=== PATIENT | female | born 1965 | race Caucasian/White ===

== ENCOUNTER 2019-02-16 00:30 | Outpatient (CLI) | payer OTHER, SELFPAY ==
--- NOTE | 2019-02-16 12:12 | DI.MAMMO_ITS ---
SYMPTOM/DIAGNOSIS: SCREENING, Z12.31 MAMMOGRAMS: Mammograms were interpreted according to the usual protocol including computer analysis with CAD system, tomosynthesis and C view imaging. The breasts are heterogenously dense with fairly symmetrical distribution of fibroglandular tissue. No dominant mass or clumped microcalcification is identified in either breast. Current examination is compared with previous examinations including 10/2017 and there has been no gross interval change in appearance in comparison with the previous studies. CONCLUSION: No specific evidence of malignancy at this time. Routine screening examinations are suggested at yearly intervals in this age group according to the ACS/ACR guidelines. Category 1. Breast density, category C. MQSA ASSESSMENT OF FINDINGS: Negative. Category 1. Patient will receive a letter notifying them of these results. Bi-RADS category C. The breasts are heterogeneously dense, which may obscure small masses.
== END 2019-02-16 00:50 ==
PROVIDERS: PCP Nurse Practitioner; Visit Provider Nurse Practitioner Family
DX: Z12.31 Encounter for screening mammogram for malignant neoplasm of breast (principal)
CPT/HCPCS: 77063; 77067

== ENCOUNTER 2020-02-12 13:58 | Outpatient (REF) | payer OTHER, SELFPAY ==
[2020-02-12 21:46] LABS: Hemoglobin A1C 5.2 % (<5.7)
[2020-02-12 22:14] LABS: Calculated LDL 144 mg/dL (<100); Cholesterol 236 mg/dL (<200); HDL Cholesterol 65 mg/dL (40-60); Triglyceride 137 mg/dL (<150)
== END 2020-02-12 14:18 ==
LOC: LBN 13:58
PROVIDERS: PCP Nurse Practitioner; Visit Provider Nurse Practitioner
DX: Z13.6 Encounter for screening for cardiovascular disorders (principal); Z13.1 Encounter for screening for diabetes mellitus
CPT/HCPCS: 80061; 83036

== ENCOUNTER 2020-03-17 10:43 | Outpatient (CLI) | payer OTHER, SELFPAY ==
--- NOTE | 2020-03-17 15:19 | DI.MAMMO_ITS ---
EXAM: MAMMO SCREENING CLINICAL HISTORY: SCREENING, Z12.39 TECHNIQUE: Mammograms were interpreted according to the usual protocol including computer analysis w [employer] CAD system, tomosynthesis and C-view imaging. COMPARISON: FINDINGS: The breasts are heterogeneously dense. No dominant mass or clumped microcalcification is identified in either breast. The current examination is compared previous examinations including February 2019 and there has been no gross interval change in appearance in comparison with the prior studies. IMPRESSION: No specific evidence of malignancy at this time. Routine screening examinations are suggested at ye dee intervals in this age group according to the ACS ACR guidelines. BI-RADS Category 1 - Negative Breast Density - Category C - Heterogeneously dense
== END 2020-03-17 11:03 ==
PROVIDERS: PCP Nurse Practitioner; Visit Provider Nurse Practitioner
DX: Z12.31 Encounter for screening mammogram for malignant neoplasm of breast (principal)
CPT/HCPCS: 77063; 77067

== ENCOUNTER 2021-01-01 05:57 | Emergency (ER) | payer OTHER, SELFPAY ==
--- NOTE | 2021-01-01 05:57 | ED.GENADUL_ITS ---
Discharge Plan Disposition Patient Disposition: HOME Condition: Good Discharge Details Clinical Impression: Febrile illness Primary Care Provider: Bonnie Melchor ED Provider: Rancho Chaudhari Meds and New Rx's Prescriptions: New doxycycline hyclate 100 mg capsule 100 mg PO BID Qty: 28 RF: 0 Continued sumatriptan succinate 50 mg tablet 50 mg PO ONCE Qty: 10 RF: 5 Multiple Vitamin, Womens 1 EACH tablet 1 ea PO daily prn RF: 0 metronidazole 45 GM gel 45 gm Topical PRN RF: 0 ibuprofen 200 MG tablet 400 - 800 mg PO daily prn RF: 0 calcium carb and citrate-vitD3 [Citracal-D3 Slow Release] 1 EACH tablet extended release 2 ea PO DAILY RF: 0 fluticasone propionate 50 mcg/actuation spray,suspension 2 spray PREMA DAILY Qty: 54.6 RF: 3 Discharge Instructions Instructions: Doxycycline (By mouth), Fever in Adults (ED) Additional Instructions: Work-up here this morning for the most part unrevealing. Covid is negative. Chest x-ray negative. Urine negative. Clinically do not suspect meningitis. Possible rickettsial disease given constellation of symptoms and slight bump in liver function. Tick panel is pending but as we discussed we will start doxycycline now and can discontinue if negative. If positive completed 2-week course. Follow-up with primary care next week if not feeling better. Return to ED if worsening severe headache, mental status change, difficulty breathing, chest pain, abdominal pain, vomiting, other concerns. Referrals: Bonnie Melchor, RESEARCH NEUROPSYCHOLOGIST [Primary Care Provider] - Medical Decision Making Patient presenting with myalgias, back pain, headache with associated fever but no other specific symptomatology. No rash or joint pain/swelling. No known tick bite but is outside and walks on path to the walker frequently. She is vaccinated against Covid and has had no recent travel. Her exam is unremarkable except for her fever. She does not look ill. She has no tachycardia or hypotension. IV established. Ketorolac and fluids were ordered. Laboratory studies including Covid swab and tick panel sent. Chest x-ray ordered. Given that headaches are mild and no different from previous with supple neck and no meningeal signs do not suspect meningitis. Laboratory studies for the most part are unremarkable. Patient's white count is normal. Platelet count is normal. Lactic acid is normal. Chemistries are fine. She does have a slight bump in her AST and ALT. Urine is negative. Chest x-ray clear per my read. Rapid Covid negative. Given her cluster of symptoms with slightly elevated liver function tests consider rickettsial disease. Discussed with patient at length regarding starting doxycycline while waiting for the tick panel to return and discontinuing it if negative versus waiting for tick panel results before starting any treatment. Patient would prefer to start doxycycline at this time. Discussed follow-up. Discussed reasons to return including worsening headache, mental status change, shortness of breath, vomiting, other concerns. Lab Data Lab results reviewed: Yes I reviewed the patient's lab results. HPI General Mode of arrival: ambulatory . Date/Time Provider Initiated Documentation: 01/01/21 05:57 . Limitations to Documentation: no limitations . Information obtained by: patient and RN notes reviewed . HPI Narrative: Patient presents to ED with fever. Patient began with upper lumbar back pain, body aches, headache midweek. Developed fever yesterday. Has had chills. Denies any URI symptoms. Denies cough, shortness of breath, chest pain, abdominal pain. She has no nausea vomiting or diarrhea. She has no urinary symptoms. She has noticed no rash, joint swelling, joint pain. 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 Reports that the back pain and headache waxes and wanes in intensity. She gets frequent headaches and these really are not any different than previous. She is otherwise usually quite healthy. Related Data Home Medications Medication Instructions Recorded Confirmed Multiple Vitamin, Womens 1 ea PO daily prn 12/30/12 01/01/21 metronidazole 45 gm TOPICAL PRN script 09/20/14 01/01/21 ibuprofen 400 - 800 mg PO daily prn tab-cap 06/07/15 01/01/21 calcium carb and citrate-vitD3 2 ea PO DAILY 08/20/17 01/01/21 [Citracal-D3 Slow Release] fluticasone propionate 50 2 spray PREMA DAILY #54.6 ml 04/21/19 01/01/21 mcg/actuation nasal spray,suspension sumatriptan succinate 50 mg tablet 50 mg PO ONCE #10 tab 02/12/20 01/01/21 doxycycline hyclate 100 mg PO BID #28 cap 01/01/21 Previous Rx's Medication Instructions Recorded fluticasone propionate 50 2 spray PREMA DAILY #54.6 ml 04/21/19 mcg/actuation nasal spray,suspension sumatriptan succinate 50 mg tablet 50 mg PO ONCE #10 tab 02/12/20 doxycycline hyclate 100 mg PO BID #28 cap 01/01/21 Allergies Allergy/AdvReac Type Severity Reaction Status Date / Time Opioids - Morphine Analogues AdvReac Unknown NAUSEA/VOMI Verified 01/01/21 06:09 TING Review of Systems Narrative: 03/23 Review of Systems completed and is negative except as stated above in HPI (Systems reviewed: Const, Eyes, ENT, Resp, CV, GI, , MSK, Skin, Neuro) [facility] Medical History (Updated 01/01/21 @ 07:49 by Rancho Chaudhari MD) Seasonal depression Surgical History Tonsillectomy Family History Mother Migraine Osteoporosis Father , age 75 Prostate cancer Sister Hyperlipidemia Sister No problems noted. Brother No problems noted. Maternal Grandfather , age 78 Essential hypertension Stroke Maternal Grandmother , age 93 No problems noted. Paternal Grandmother , 80 No problems noted. Son Down syndrome Son No problems noted. Daughter No problems noted. Daughter No problems noted. Social History Smoking/Tobacco Use Status: Never Smoking risk assessment performed?: Yes Alcohol Intake: current Alcohol Intake frequency: holidays/special occasions only Alcohol type: beer, wine and hard liquor Drug use: Never Substance use type: does not use Counseling given: No Caregiver/Support person: No Household members: spouse and children Housing: house Communication Needs: Corrective Lenses Do you need help understanding health information?: Never current occupation: Pharmacist at [employer] Pets and animals: Yes Pets and animals: cat(s) and dog(s) Sexually active: Yes Do you think of yourself as: straight/heterosexual Current gender identity: female What is your relationship status?: How often do you talk on the phone with friends or family?: twice per week How often do you get together with friends or relatives?: once per week How often do you attend restorationist or mosque services?: 4 or more times per year Do you belong to any clubs or organized social groups?: no Panel score (0-1 are the most socially isolated patients): 3 What type of physical activity do you participate in: walking Duration: 15-30 minutes/day Frequency: 5-6 times per week Carley/Jainism: Pentecostal Special carley needs: No Seatbelt use: always Helmet use: Yes Helmet use: always Drive intox or ride w/intox tanker truck driver: No Do you feel safe at home: Yes Do you feel safe in your relationship?: Yes Exam Narrative Exam Narrative: Const: WDWN female in NAD. HEENT: NC/AT. Normal facial exam. Eyes: Normal conjunctiva and sclera. Neck: Supple. Trachea midline. No meningeal signs. Lungs: Normal respiratory effort. Lungs are clear. Cor: RRR without murmur/gallop. Good radial pulses. GI: Soft. NT/ND. No guarding or rebound. Back: No CVAT Neuro: A+O x 3. Normal speech, mentation, gait. Cranial nerves II - XII grossly intact. No gross motor or sensory deficit. Ext: No C/C/E. Skin: Warm and dry without rash.
[2021-01-01 06:02] VITALS: BP 117/66; PULSE 91; RESP 16; TEMP 38.4; O2SAT 93
--- NOTE | 2021-01-01 06:15 | DI.RAD_ITS ---
Exam(s) XR PORTABLE CHEST AP EXAM: XR PORTABLE CHEST AP CLINICAL HISTORY: fever TECHNIQUE: 2D digital imaging was performed. COMPARISON: No exams were available for comparison FINDINGS: MEDIASTINUM: Normal. HEART: Normal. PULMONARY VASCULATURE: Normal. LUNGS: Clear. PLEURAL SPACE: No pleural effusion or pneumothorax. BONE:Within normal limits for the patient's age. OTHER FINDINGS:Normal. IMPRESSION: No acute pulmonary findings. DATA REPOSITORY: RADIATION DOSE DELIVERED:
[2021-01-01 06:19] LABS: Bilirubin Negative (Negative); Blood Negative (Negative); Glucose Negative (Negative); Ketones Negative (Negative); Leukocyte Esterase Negative (Negative); Nitrite Negative (Negative); Specific Gravity 1.025 (1.005-1.025)
[2021-01-01 06:20] LABS: Clarity Sl Cloudy (Clear)
[2021-01-01 06:29] LABS: Bacteria Few HPF (Negative); Epithelial Cells Rare HPF (Negative); WBC 0-2 HPF (0-5)
[2021-01-01 06:30] LABS: C & S Indicated? No; Casts Negative LPF (Negative); Crystals Few Amorphous HPF (Negative); Mucus Moderate (Negative)
[2021-01-01 06:34] LABS: Lactate 0.9 mmol/L (0.6-1.4)
[2021-01-01 06:36] LABS: Abs Immature Grans 0.02 10^3/uL (0.0-0.06); Absolute Basophil Count 0.03 10^3/uL (0.0-0.2); Absolute Lymphocyte Count 0.78 10^3/uL (1.2-3.4); Absolute Monocyte Count 0.39 10^3/uL (0.1-0.8); Absolute Neutrophil Count 4.14 10^3/uL (1.2-6.7); Basophils % 0.6; HCT 38.3 % (36.0-46.0); HGB 13.1 g/dL (11.2-15.7); Immature Grans % 0.4; Lymphocytes % 14.6; MCH 31.6 pg (27.0-33.0); MCHC 34.2 % (32.0-36.0); MCV 92.3 fL (80-95); MPV 10.7 fL (8.0-11.0); Monocytes % 7.3; Neutrophils % 77.1; Nucleated RBC 0 %; Platelet Count 176 10^3/uL (130-400); RBC 4.15 10^6/uL (3.93-5.22); RDW 11.9 % (11.7-14.6); RDW-SD 40.2 fL; WBC 5.36 10^3/uL (4.4-10.8)
[2021-01-01] MEDS: Lactated Ringers 1,000 ML 1000 ML IV (06:38)
[2021-01-01 06:44] LABS: Source Nasal/Nares
[2021-01-01 06:49] LABS: ALT 71 U/L (14-59); AST 77 U/L (15-37); Albumin 3.6 g/dL (3.4-5.0); Alkaline Phosphatase 115 U/L (46-116); Anion Gap 8.6 mmol/L (3-11); BUN 12 mg/dL (7-18); Bilirubin, Total 0.3 mg/dL (0.2-1.0); CO2 26.4 mmol/L (21.0-32.0); CREATININE 0.7 mg/dL (0.55-1.02); Calcium 8.9 mg/dL (8.5-10.1); Chloride 102 mmol/L (98-107); Glucose 130 mg/dL (74-106); Potassium 4.1 mmol/L (3.5-5.1); Sodium 137 mmol/L (136-145); Total Protein 7.5 g/dL (6.4-8.2)
[2021-01-01] MEDS: Ketorolac 15 MG/ML VIAL IVP (06:53)
[2021-01-01 07:37] LABS: COVID-19 PCR Negative (Negative)
[2021-01-01 07:47] VITALS: BP 99/52; PULSE 69; RESP 16; TEMP 36.4; O2SAT 93
--- NOTE | 2021-01-01 07:52 | DI.VRAD_ITS ---
PROCEDURE INFORMATION: Exam: XR Chest Exam date and time: 01/01/2021 6:27 AM Age: 55 years old Clinical indication: Fever TECHNIQUE: Imaging protocol: XR of the chest. Views: 1 view. COMPARISON: No relevant prior studies available. FINDINGS: Lungs: Unremarkable. No consolidation. Pleural spaces: Unremarkable. No pleural effusion. No pneumothorax. Heart/Mediastinum: Unremarkable. No cardiomegaly. Bones/joints: Mild levoscoliosis in the lower thoracic spine. IMPRESSION: No acute findings. Dictated and Authenticated by: Lee Jim MD. Ordering:EDWIN Vickers MD
[2021-01-01] MEDS: Doxycycline Hyclate 100 MG CAP PO (07:55)
[2021-01-01 08:05] VITALS: BP 99/52; PULSE 69; RESP 16; TEMP 36.4; O2SAT 93
[2021-01-02 11:43] LABS: Lyme Ab w Rflx to Lyme Confirm Negative (Negative)
[2021-01-03 16:16] LABS: Anaplasma phagocytophilum Negative (Negative); B. miyamotoi PCR Negative (Negative); Babesia divergens/MO-1 Negative (Negative); Babesia duncani Negative (Negative); Babesia microti Negative (Negative); Ehrlichia chaffeensis Negative (Negative); Ehrlichia ewingii/canis Negative (Negative); Ehrlichia muris eauclairensis Negative (Negative)
== END 2021-01-01 08:08 | disposition home or self-care (01) ==
PROVIDERS: Emergency Provider Emergency Medicine; PCP Nurse Practitioner
DX: R50.9 Fever, unspecified (principal); M54.9 Dorsalgia, unspecified; R51.9 Headache, unspecified
CPT/HCPCS: 36415; 80053; 87040; 87635; 87798; 96361; 96374; 99284; 71045; 81003; 81015; 83605; 85025; 86618; J1885

== ENCOUNTER 2021-01-31 05:09 | Outpatient (CLI) | payer OTHER, SELFPAY ==
[2021-02-01 13:08] LABS: Lyme Ab w Rflx to Lyme Confirm Positive (Negative)
[2021-02-01 13:51] LABS: Lyme IgG Ab Positive (Negative); Lyme IgM Ab Positive (Negative)
[2021-02-01 23:55] LABS: Anaplasma phagocytophilum Negative (Negative); B. miyamotoi PCR Negative (Negative); Babesia divergens/MO-1 Negative (Negative); Babesia duncani Negative (Negative); Babesia microti Negative (Negative); Ehrlichia chaffeensis Negative (Negative); Ehrlichia ewingii/canis Negative (Negative); Ehrlichia muris eauclairensis Negative (Negative)
== END 2021-01-31 05:10 | disposition home or self-care (01) ==
LOC: LBO 05:09
PROVIDERS: Family Medicine; PCP Nurse Practitioner; Visit Provider Nurse Practitioner
DX: R50.9 Fever, unspecified (principal)
CPT/HCPCS: 36415; 86617; 87798; 82565; 86618

== ENCOUNTER 2021-05-02 12:56 | Outpatient (CLI) | payer OTHER, SELFPAY ==
--- NOTE | 2021-05-02 08:45 | DI.MAMMO_ITS ---
Exam(s) MAMMO SCREENING EXAM: MAMMO SCREENING CLINICAL HISTORY: screening, Z12.39 TECHNIQUE: Mammograms were interpreted according to the usual protocol including computer analysis w [facility] CAD system, tomosynthesis and C-view imaging. COMPARISON: FINDINGS: The breasts are heterogeneously dense. No dominant mass or clumped microcalcification is identified in either breast. The current examination is compared with previous examinations including March 11 and there has been no gross interval change in appearance in comparison with the prior studies. IMPRESSION: No specific evidence of malignancy at this time. Routine screening examinations are suggested at yea rly intervals in this age group according to the ACS ACR guidelines. BI-RADS Category 1 - Negative Breast Density - Category C - Heterogeneously dense
== END 2021-05-02 13:16 ==
PROVIDERS: PCP Nurse Practitioner; Visit Provider Nurse Practitioner
DX: Z12.31 Encounter for screening mammogram for malignant neoplasm of breast (principal); R92.8 Other abnormal and inconclusive findings on diagnostic imaging of breast
CPT/HCPCS: 77063; 77067

== ENCOUNTER 2021-05-18 13:52 | Outpatient (REF) | payer OTHER, SELFPAY ==
--- NOTE | 2021-05-18 13:30 | PAPFT_PTH ---
PATIENT: Marley Chicas LOC: [facility] U#:[id number] AGE/SX: 56/F ROOM: RE05/18/[address]: MARYJO Elizondo : 1965 BED: DIS: 05/18/2021 SPEC #: [id number] RECD: 05/18/21 17:44 STATUS: ROLANDO REDiana #: [id number] MERRY: 05/18/21 13:[address]: Becca Sloan DEPT: [facility] Cytology RECD BY: Nicole Laws ENTERED: 05/18/21 17:44 SP TYPE: PAPFT OTHR DR: Bonnie Melchor, PhD FREELANCE ART DIRECTOR Tissues: 1 - CX/ENDOCX FOR PAP SMEARS Procedures: PAP THIN PREP/UVM Screening HPV DNA PROBE Comments: [id number]
== END 2021-05-18 13:53 | disposition home or self-care (01) ==
LOC: LBN 13:52
PROVIDERS: PCP Nurse Practitioner; Visit Provider Nurse Practitioner Family
DX: Z12.4 Encounter for screening for malignant neoplasm of cervix (principal); Z11.51 Encounter for screening for human papillomavirus (HPV)
CPT/HCPCS: 88142; 87624

== ENCOUNTER → 2022-05-25 00:33 | Outpatient (CLI) | payer OTHER, SELFPAY ==
--- NOTE | 2022-05-25 08:00 | DI.MAMMO_ITS ---
Exam(s) MAMMO SCREENING EXAM: MAMMO SCREENING CLINICAL HISTORY: screening,Z12.39. TECHNIQUE: Bilateral full field digital CC and MLO mammographic images were obtained with 3D tomosyn thesis and utilizing computer aided detection (CAD). COMPARISON: Prior mammograms were reviewed. FINDINGS: There has been no significant change in the appearance and distribution of the fibroglandular tissue. There are no CAD designations. No new significant findings in the left breast. Superficial nodule the lateral aspect of right breast is unchanged from prior studies and probably a skin mole. There is no significant architectural distortion nor skin thickening-retraction. IMPRESSION: No radiographic evidence of malignancy. BI-RADS Category 2 - Benign Findings Breast Density - Category B - Scattered areas of fibroglandular density Breast density Category C or D implies that the patient has dense breast tissue. Dense breast tissue can make it harder to find cancer on a mammogram. Dense breast tissue is also associated with an incr eased risk of breast cancer. This information about the result of the mammogram report was provided to the patient to raise their awareness. Use this report when you speak with the patient about their risks for breast cancer, which includes their family history. At that time, you may recommend additional screening tests (Ultrasoun d or MRI) as these tests may add significant information. A negative radiographic report should not delay biopsy if a dominant or clinically suspicious mass is present. Up to ten percent of cancers are not identified on mammography. A negative report may reinforce clinical impression. Adenosis and dense breasts may obscure an underlying neoplasm. False positive reports average 6 to 10%. Patient will receive a letter notifying them of these results.
== END ==
PROVIDERS: PCP Nurse Practitioner Family; Visit Provider Nurse Practitioner Family
DX: Z12.31 Encounter for screening mammogram for malignant neoplasm of breast (principal)
CPT/HCPCS: 77063; 77067

== ENCOUNTER 2022-05-31 02:12 | Outpatient (CLI) | payer OTHER, SELFPAY ==
[2022-05-31 08:02] LABS: Abs Immature Grans 0.02 10^3/uL (0.0-0.06); Absolute Basophil Count 0.02 10^3/uL (0.0-0.2); Absolute Eosinophil Count 0.16 10^3/uL (0.0-0.7); Absolute Lymphocyte Count 2.61 10^3/uL (1.2-3.4); Absolute Monocyte Count 0.54 10^3/uL (0.1-0.8); Absolute Neutrophil Count 3.68 10^3/uL (1.2-6.7); Basophils % 0.3; Eosinophils % 2.3; HCT 39.2 % (36.0-46.0); HGB 13.2 g/dL (11.2-15.7); Immature Grans % 0.3; Lymphocytes % 37.1; MCH 31.5 pg (27.0-33.0); MCHC 33.7 % (32.0-36.0); MCV 94 fL (80-95); MPV 10.6 fL (8.0-11.0); Monocytes % 7.7; Neutrophils % 52.3; Platelet Count 218 10^3/uL (130-400); RBC 4.19 10^6/uL (3.93-5.22); RDW 11.9 % (11.7-14.6); RDW-SD 41.1 fL; WBC 7.03 10^3/uL (4.4-10.8)
[2022-05-31 08:16] LABS: Hemoglobin A1C 5.4 % (<5.7)
[2022-05-31 08:59] LABS: ALT 25 U/L (14-59); AST 27 U/L (15-37); Albumin 3.9 g/dL (3.4-5.0); Alkaline Phosphatase 123 U/L (46-116); Anion Gap 5.9 mmol/L (3-11); BUN 21 mg/dL (7-18); Bilirubin, Total 0.7 mg/dL (0.2-1.0); CO2 32.1 mmol/L (21.0-32.0); CREATININE 0.7 mg/dL (0.55-1.02); Calcium 9.5 mg/dL (8.5-10.1); Calculated LDL 150 mg/dL (<100); Chloride 104 mmol/L (98-107); Cholesterol 237 mg/dL (<200); Estimated GFR 100.19 (mL/min/1.73m2); Glucose 94 mg/dL (74-106); HDL Cholesterol 73 mg/dL (40-60); Sodium 142 mmol/L (136-145); TSH (W/Ref FT4) 2.63 uIU/mL (0.36-3.74); Total Protein 7.8 g/dL (6.4-8.2); Triglyceride 74 mg/dL (<150)
== END 2022-05-31 02:13 | disposition home or self-care (01) ==
LOC: LBO 02:12
PROVIDERS: PCP Nurse Practitioner Family; Visit Provider Nurse Practitioner Family
DX: F41.9 Anxiety disorder, unspecified (principal); Z00.00 Encounter for general adult medical examination without abnormal findings
CPT/HCPCS: 36415; 80053; 80061; 83036; 84443; 85025

== ENCOUNTER 2023-06-21 04:07 | Outpatient (CLI) | payer BC, SELFPAY ==
[2023-06-21 12:23] LABS: HCT 40.3 % (36.0-46.0); HGB 13.6 g/dL (11.2-15.7); MCH 31.4 pg (27.0-33.0); MCHC 33.7 % (32.0-36.0); MCV 93 fL (80-95); MPV 10.3 fL (8.0-11.0); Platelet Count 258 10^3/uL (130-400); RBC 4.33 10^6/uL (3.93-5.22); RDW 11.9 % (11.7-14.6); RDW-SD 40.7 fL; WBC 7.27 10^3/uL (4.4-10.8)
[2023-06-21 13:24] LABS: ALT 29 U/L (14-59); AST 24 U/L (15-37); Albumin 3.7 g/dL (3.4-5.0); Alkaline Phosphatase 113 U/L (46-116); BUN 11 mg/dL (7-18); Bilirubin, Total 0.7 mg/dL (0.2-1.0); CREATININE 0.6 mg/dL (0.55-1.02); Calcium 9.6 mg/dL (8.5-10.1); Calculated LDL 141 mg/dL (<100); Chloride 103 mmol/L (98-107); Cholesterol 232 mg/dL (<200); Estimated GFR 103.33 (mL/min/1.73m2); Glucose 96 mg/dL (74-106); HDL Cholesterol 76 mg/dL (40-60); Potassium 3.8 mmol/L (3.5-5.1); Sodium 138 mmol/L (136-145); Total Protein 7.4 g/dL (6.4-8.2); Triglyceride 78 mg/dL (<150)
== END 2023-06-21 04:08 | disposition home or self-care (01) ==
PROVIDERS: PCP Nurse Practitioner Family; Visit Provider Nurse Practitioner Family
DX: F41.9 Anxiety disorder, unspecified (principal); L71.9 Rosacea, unspecified; Z00.00 Encounter for general adult medical examination without abnormal findings
CPT/HCPCS: 36415; 80053; 80061; 85027

== ENCOUNTER → 2023-07-29 02:06 | Outpatient (CLI) | payer BC, SELFPAY ==
--- NOTE | 2023-07-29 12:17 | DI.MAMMO_ITS ---
Exam(s) MAMMO SCREENING EXAM: MAMMO SCREENING CLINICAL HISTORY: screening,Z12.39 TECHNIQUE: Bilateral full field digital CC and MLO mammographic images were obtained with 3D tomosyn thesis and utilizing computer aided detection (CAD). COMPARISON: Available for comparison. FINDINGS: Masses/Architectural Distortion: None seen. Microcalcifications: No suspicious pleomorphic-type are seen. Skin Thickening/Nipple Retraction: None. IMPRESSION: 1. No significant interval change with no specific features of malignancy noted. 2. Unless there is more urgent need, screening mammography is recommended, as per [employer] guidelines. BI-RADS Category 1 - Negative Breast Density - Category B - Scattered areas of fibroglandular density Breast density category C or D implies that the patient has dense breast tissue. Dense breast tissue is very common and is not abnormal but dense breast tissue can make it harder to find cancer on a ma mmogram. Also, dense breast tissue may increase their breast cancer risk. This information about the result of the mammogram report was provided to the patient to raise their awareness. Use this report when you speak with the patient about their risks for breast cancer, which includes their family hist ory. At that time, you may recommend for more screening tests (Ultrasound or MRI) as they might be us eful based on their risk. A negative radiographic report should not delay biopsy if a dominant or clinically suspicious mass is present. Up to ten percent of cancers are not identified on mammography. A negative report may reinforce clinical impression. Adenosis and dense breasts may obscure an underlying neoplasm. False positive reports average 6 to 10%. Patient will receive a letter notifying them of these results.
== END ==
PROVIDERS: PCP Nurse Practitioner Family; Visit Provider Nurse Practitioner Family
DX: Z12.31 Encounter for screening mammogram for malignant neoplasm of breast (principal)
CPT/HCPCS: 77063; 77067

== ENCOUNTER 2024-07-09 04:50 | Outpatient (CLI) | payer BC, SELFPAY ==
[2024-07-09 13:15] LABS: HCT 39.8 % (36.0-46.0); HGB 13.1 g/dL (11.2-15.7); MCH 31.6 pg (27.0-33.0); MCHC 32.9 % (32.0-36.0); MCV 96 fL (80-95); MPV 10.8 fL (8.0-11.0); Platelet Count 237 10^3/uL (130-400); RBC 4.14 10^6/uL (3.93-5.22); RDW 12.1 % (11.7-14.6); RDW-SD 43.5 fL; WBC 5.84 10^3/uL (4.4-10.8)
[2024-07-09 13:41] LABS: ALT 24 U/L (14-59); AST 26 U/L (15-37); Albumin 3.9 g/dL (3.4-5.0); Alkaline Phosphatase 109 U/L (46-116); BUN 18 mg/dL (7-18); Bilirubin, Total 0.46 mg/dL (0.2-1.0); CREATININE 0.8 mg/dL (0.55-1.02); Calcium 9.3 mg/dL (8.5-10.1); Calculated LDL 127 mg/dL (<100); Chloride 106 mmol/L (98-107); Cholesterol 230 mg/dL (<200); Glucose 111 mg/dL (74-106); HDL Cholesterol 85 mg/dL (40-60); Sodium 143 mmol/L (136-145); Total Protein 7.5 g/dL (6.4-8.2); Triglyceride 91 mg/dL (<150)
== END 2024-07-09 04:51 | disposition home or self-care (01) ==
LOC: LBO 04:50
PROVIDERS: PCP Nurse Practitioner Family; Visit Provider Nurse Practitioner Family
DX: L71.9 Rosacea, unspecified (principal); M19.90 Unspecified osteoarthritis, unspecified site; Z78.0 Asymptomatic menopausal state; Z00.00 Encounter for general adult medical examination without abnormal findings
CPT/HCPCS: 36415; 80053; 80061; 85027

== ENCOUNTER 2024-09-14 02:02 | Outpatient (CLI) | payer BC, SELFPAY ==
--- NOTE | 2024-09-14 07:30 | DI.MAMMO_ITS ---
Exam(s) MAMMO SCREENING EXAM: MAMMO SCREENING CLINICAL HISTORY: screening,Z12.39 TECHNIQUE: Mammograms were interpreted according to the usual protocol including computer analysis w [employer] CAD system, tomosynthesis and C-view imaging. COMPARISON: 2014 through 2023 FINDINGS: The breasts are composed of scattered fibroglandular densities, Breast Density category B. No suspicious masses or suspicious microcalcifications are seen. No skin thickening or abnormal axillary lymph nodes are seen. There has been no significant change from prior exams. IMPRESSION: BI-RADS Category 1, Negative mammogram Yearly screening mammography is recommended. Breast Density - Category B, scattered fibroglandular densities. A negative radiographic report should not delay biopsy if a dominant or clinically suspicious mass is present. Up to ten percent of cancers are not identified on mammography. A negative report may reinforce clinical impression. Adenosis and dense breasts may obscure an underlying neoplasm. False positive reports average 6 to 10%. Patient will receive a letter notifying them of these results.
== END 2024-09-14 02:22 ==
LOC: DI 02:02
PROVIDERS: PCP Nurse Practitioner Family; Visit Provider Nurse Practitioner Family
DX: Z12.31 Encounter for screening mammogram for malignant neoplasm of breast (principal); R92.323 Mammographic fibroglandular density, bilateral breasts
CPT/HCPCS: 77063; 77067